=== PATIENT | female | born 2000 | race African-American/Black ===

== ENCOUNTER 2021-12-30 16:05 | Emergency (ER) | payer BC, OTHER ==
[~2021-12-30] VITALS: Ht 170.2 cm; Wt 96.2 kg
[~2021-12-30 16:05] MED LIST: AMOXICILLIN500 M1 PO
[2021-12-30 16:24] VITALS: BP 125/76
== END 2021-12-30 17:55 | disposition left against medical advice (07) ==
LOC: ER 16:05
DX: J02.9 Acute pharyngitis, unspecified (principal); Z20.822 Contact with and (suspected) exposure to COVID-19; Z79.899 Other long term (current) drug therapy